=== PATIENT | male | born 1960 | race African-American/Black ===

== ENCOUNTER 2018-05-18 07:56 | Emergency (ER) | payer BC ==
[2018-05-18 08:38] LABS: ALT (SGPT) 53 U/L (8-55); AST (SGOT) 74 U/L (5-34); Albumin 3.5 g/dL (3.4-4.8); Alkaline Phosphatase 80 U/L (40-150); Anion Gap 23 mmol/L (10-20); BUN (Urea Nitrogen) 38 mg/dL (8.4-25.7); Bilirubin, Total 0.3 mg/dL (0.2-1.2); CK (CPK) 407 U/L (30-200); Calc. Creatinine Clearance 0 mL/min (70-130); Calcium 9.1 mg/dL (7.8-10.44); Carbon Dioxide 13 mmol/L (23-31); Chloride 102 mmol/L (98-107); Estimated GFR-MDRD 33; Globulin 4.7 g/dL (2.4-3.5); Glucose 280 mg/dL (80-115); Lipase 25 U/L (8-78); Potassium 5.2 mmol/L (3.5-5.1); Protein, Total 8.2 g/dL (5.8-8.1); Sodium 133 mmol/L (136-145)
[2018-05-18 08:42] LABS: #Basophils 0.1 thou/uL (0.0-0.2); #Lymphocytes 2.3 thou/uL (1.20-3.40); #Monocytes 0.6 thou/uL (0.11-0.59); %Basophils 0.7 % (0.0-1.0); %Eosinophils 0.4 % (0.0-10.0); %Lymphocytes 25.8 % (21.0-51.0); %Monocytes 6.3 % (0.0-10.0); %Neutrophils 66.8 % (42.0-75.0); CKMB 3.8 ng/mL (0-6.6); Hemoglobin 13.4 g/dL (14.0-18.0); Mean Corpuscular HGB CONC 31.5 g/dL (32.0-36.0); Mean Corpuscular Hemoglobin 29.8 pg (27.0-31.0); Mean Corpuscular Volume 94.6 fL (78.0-98.0); Mean Platelet Volume 7.1 fL (7.4-10.4); Platelet Count 291 thou/uL (130-400); RBC Distribution Width 13.2 % (11.5-14.5); Red Blood Cell (RBC) Count 4.49 mill/uL (4.70-6.10); Troponin I Less than 0.010 ng/mL (< 0.028)
--- NOTE | 2018-05-18 08:57 | RAD ---
RADIOGRAPH CHEST 1 VIEW: Supine DATE: 05/18/2018. TIME: 8:07 a.m. HISTORY: A 68-year-old male with STEMI (ST elevation myocardial infarction). FINDINGS: There is no air space density or pulmonary edema. The lateral costophrenic angles are sharp. Supine positioning makes this study insensitive for pneumothorax detection. IMPRESSION: No acute pulmonary findings. juliet [] POS: JENNIFFER
[2018-05-18] MEDS ORDERED: Sodium Bicarb 50 MEQ/50 ML Abboject 8.4% SYRINGE ONE (09:00)
[2018-05-18] MEDS ORDERED: EPINEPHrine 1 MG/10 ML Abboject SYRINGE ONE (09:00)
--- NOTE | 2018-05-18 09:19 | CT ---
CT OF HEAD NONCONTRAST: INDICATION: Altered mental status. COMPARISON: No prior comparison. FINDINGS: There is left occipital encephalomalacia with ex vacuo dilatation of the ventricular system. Mild ch ronic ischemic disease is present. No intracranial hemorrhage, mass effect, or midline shift present . Bilateral kwabena holes are seen within each parietal bone. Mild soft tissue prominence of the left periorbital soft tissues is seen. Correlate clinically. IMPRESSION: 1. Left occipital encephalomalacia and mild chronic ischemic disease. 2. No acute intracranial hemorrhage or mass effect. POS: JENNIFFER
--- NOTE | 2018-05-18 09:37 | CT ---
CTA CHEST WITH 3D VOLUME RENDERING WITH CONTRAST CTA ABDOMEN AND PELVIS WITH CONTRAST WITH 3D VOLUME RENDERING CT AORTOGRAM: CLINICAL HISTORY: Chest pain. COMPARISON: No prior comparison imaging. FINDINGS: There are significant pulmonary arterial filling defects most notably at the distal main pulmonary ar teries and extending into bilateral segmental and subsegmental pulmonary arterial branches consistent with an extensive degree of acute pulmonary thromboembolism. There are multiple areas of ground-gla ss density of the lungs related to motion artifact. The kidneys are markedly distorted by motion whi ch could obscure underlying pathology. There is a right adrenal mass, incompletely assessed and dist orted by motion. There is a diffuse low density of the hepatic parenchyma, incompletely assessed on the basis of arterial phase of enhancement. The bowel is not reliably evaluated. There is no pneumo peritoneum or significant ascites visualized. No evidence of a thoracoabdominal aortic aneurysm or focal dissection. Major branch vessels that james dax from the abdominal aorta are patent as are the vessels emanating from the aortic arch. There is mild scattered vascular disease. Diffuse osseous degenerative changes are present. There are calci fications of the thorax compatible with granulomatous calcification. IMPRESSION: 1. Extensive bilateral acute pulmonary emboli. 2. No aortic aneurysm or dissection. 3. Indeterminate right adrenal mass. Recommend followup with dedicated adrenal mass protocol. 4. Additional details are described above. Findings were conveyed to the ER physician, Gary Ayon, at 0853 hours, 05/18/2018. CODE CR POS: JENNIFFER
--- NOTE | 2018-05-18 15:51 | CON ---
DATE OF CONSULTATION: 05/18/2018 HISTORY: Juma Bull is a 68-year-old black male, who apparently was found down at [facility]. Little is known, however, the nurse talked to his . He apparently has a seizure disorder and did have urinary incontinence with this episode. At the present time, he is complaining of periumbilical pain. He denies any chest pain or previous cardiac problems. Apparently, he is noncompliant with his seizure medications. PAST MEDICAL HISTORY: Apparently, he is mentally challenged. He has a history of seizure disorder. MEDICATIONS: Unknown. ALLERGIES: NONE. PAST SURGICAL HISTORY: Unknown. FAMILY HISTORY: Unobtainable at this time. SOCIAL HISTORY: Unobtainable at this time. REVIEW OF SYSTEMS: Unobtainable at this time. PHYSICAL EXAMINATION: VITAL SIGNS: Blood pressure 86/70 and pulse 100. HEENT: PERRL. NECK: Supple. CHEST: Clear. CARDIAC: S1 and S2 normal without any S3, S4, or murmurs. ABDOMEN: Normal bowel sounds, but somewhat hypoactive. He does have periumbilical tenderness, which he states reproduces his pain. The abdomen is obese. EXTREMITIES: Reveal 2+ edema. NEUROLOGICAL: The patient is moving all extremities, but hard time getting him to answer questions. LABORATORY DATA: Only thing that is available is an EKG, which revealed sinus rhythm, right bundle-branch block, possible old inferior infarction. The initial EKG showed 1 to 2 mm elevation in V2 through V4. However, repeat EKG essentially does not show this any longer and I doubt that this represents a STEMI. IMPRESSION: 1. Found down at [facility] with history of seizure disorder. 2. Periumbilical pain. 3. Significant peripheral edema. 4. Obesity. PLAN: From his second EKG, I do not feel that this represents a STEMI. His abdominal pain needs to be further evaluated and then consideration will be given to cardiac evaluation. With his peripheral edema, he certainly needs to have an echo performed. I will follow the patient with you. Job ID: [id number] [id number]
[2018-05-18] MEDS ORDERED: ISOVUE-370 76%-LOCM 1 ML ONE (16:44)
== END 2018-05-18 10:02 | disposition expired ==
LOC: ERS 07:56 → EDBD 07:56 → ERS 10:02
DX: I46.9 Cardiac arrest, cause unspecified (principal); N17.9 Acute kidney failure, unspecified; I26.99 Other pulmonary embolism without acute cor pulmonale; I95.9 Hypotension, unspecified; R56.9 Unspecified convulsions
CPT/HCPCS: 36415; 70450; 71045; 71275; 80053; 82553; 83690; 84146; 84484; 85025; 92950; 93005; 96374; 96375; J0171; J1644; J2997